=== PATIENT | female | born 1980 | race Caucasian/White ===

== ENCOUNTER 2021-05-14 14:59 | Day surgery (SDC) | payer OTHER ==
[2021-05-14 15:38] VITALS: BMI 34.8
== END 2021-05-14 19:15 | disposition home or self-care (01) ==
LOC: CSHLD/OP 14:59
PROVIDERS: ATTEND Student in an Organized Health Care Education/Training Program
DX: O99.891 Other specified diseases and conditions complicating pregnancy (principal); O47.1 False labor at or after 37 completed weeks of gestation; O32.1XX0 Maternal care for breech presentation, not applicable or unspecified; O09.523 Supervision of elderly multigravida, third trimester; O24.419 Gestational diabetes mellitus in pregnancy, unspecified control; O40.3XX0 Polyhydramnios, third trimester, not applicable or unspecified; R03.0 Elevated blood-pressure reading, without diagnosis of hypertension; Z3A.37 37 weeks gestation of pregnancy; Z79.82 Long term (current) use of aspirin; Z79.899 Other long term (current) drug therapy

== ENCOUNTER 2021-05-18 11:48 | Outpatient (CLI) | payer OTHER ==
[2021-05-18 21:48] LABS: SARS-CoV-2 PCR by NAA Not Detected (NotDetected)
== END 2021-05-18 11:49 | disposition home or self-care (01) ==
LOC: CSHLAB 11:48
PROVIDERS: ATTEND Family Medicine
DX: Z01.812 Encounter for preprocedural laboratory examination (principal); Z20.822 Contact with and (suspected) exposure to COVID-19
CPT/HCPCS: U0003; U0005

== ENCOUNTER 2021-05-25 16:24 | Inpatient (IN) | payer MEDICAID, OTHER ==
[2021-05-25] MEDS ORDERED: hydrALAZINE 20 MG/ML VIAL SLOW IVP PRN (17:01)
[2021-05-25] MEDS ORDERED: Promethazine HCl 25 MG/ML VIAL IM PRN (17:01)
[2021-05-25] MEDS ORDERED: Ondansetron PF 4 MG/2 ML Vial IVP PRN (17:01)
[2021-05-25] MEDS ORDERED: Lidocaine 1% (PF) 30 ML VIAL SC PRN (17:01)
[2021-05-25] MEDS ORDERED: NS w/ Oxytocin 30 units 500 ML IV SCH (17:15)
[2021-05-25 17:32] LABS: Hemoglobin 11.9 g/dL (12.0-15.5); Mean Corpuscular HGB CONC 33.1 g/dL (32.0-36.0); Mean Corpuscular Hemoglobin 29.6 pg (27.0-33.0); Mean Corpuscular Volume 89.6 fl (81.6-98.3); Mean Platelet Volume 10.4 fl (7.4-10.4); Platelet Count 249 10x3/uL (150-450); RBC Distribution Width 14.9 % (11.5-14.5); Red Blood Cell (RBC) Count 4.02 10x6/uL (3.90-5.03); White Blood Cell (WBC) Count 8.5 10x3/uL (3.5-10.5)
[2021-05-25 18:00] VITALS: BMI 34.8
[2021-05-25] MEDS ORDERED: Terbutaline Sulfate 1 MG/ML VIAL SC SCH (18:00)
[2021-05-25 18:05] LABS: Hep B Surf Ag Non-Reactive S/CO (NonReactive); Syphilis Antibody Nonreactive (Nonreactive); Syphilis Antibody Index 0.05 S/CO (<1.00 Non-Reactive)
[2021-05-25] MEDS ORDERED: Carboprost 250 MCG/ML AMP IM PRN (18:51)
[2021-05-25] MEDS ORDERED: Misoprostol 200 MCG TAB PR PRN (18:51)
[2021-05-25] MEDS ORDERED: Ibuprofen 800 MG TAB PO PRN (18:51)
[2021-05-25] MEDS: Misoprostol 100 MCG TAB VAG SCH (20:10)
[2021-05-26] MEDS: Misoprostol 100 MCG TAB VAG SCH ×3 (00:12→09:21)
[2021-05-26] MEDS ORDERED: NS w/ Oxytocin 30 units 0 ML ONE (13:35)
[2021-05-26] MEDS ORDERED: Lidocaine 1% (PF) 30 ML VIAL SC PRN (13:36)
[2021-05-26] MEDS ORDERED: NS w/ Oxytocin 30 units 500 ML IV SCH (13:45)
[2021-05-26] MEDS ORDERED: Fentanyl 2 mcg/Bup 0.1% Cadd 100 ML ONE (15:45)
[2021-05-26] MEDS ORDERED: Naloxone HCl 0.4 mg/ml Vial IVP PRN ×2 (16:16)
[2021-05-26] MEDS ORDERED: Promethazine HCl 25 MG/ML VIAL IM PRN (16:16)
[2021-05-26] MEDS ORDERED: Hydrocerin (Eucerin) Cream 120 gm Jar TOP PRN (16:16)
[2021-05-26] MEDS ORDERED: ePHEDrine Sulfate 50 MG/10 ML VIAL SLOW IVP PRN (16:16)
[2021-05-26] MEDS ORDERED: diphenhydrAMINE 50 MG/ML VIAL IVP PRN (16:16)
[2021-05-26] MEDS ORDERED: Ondansetron PF 4 MG/2 ML Vial IVP PRN (16:16)
[2021-05-26] MEDS ORDERED: Lactated Ringer's 500 ML IV PRN (16:16)
[2021-05-26] MEDS ORDERED: Acetaminophen 325 MG TAB PO PRN (16:16)
[2021-05-26] MEDS ORDERED: Fentanyl 2 mcg/Bupivacaine 0.1% Cassette 100 ML EPIDURAL SCH (16:30)
[2021-05-26] MEDS ORDERED: Communication Order-Pharmacy FS SCH (16:30)
[2021-05-26] MEDS ORDERED: Methylergonovine 0.2 MG/ML VIAL ONE (22:48)
[2021-05-26] MEDS ORDERED: Misoprostol 200 MCG TAB ONE (22:54)
[2021-05-27] MEDS: Misoprostol 100 MCG TAB VAG SCH (01:36)
[2021-05-27] MEDS ORDERED: Preparation H Ointment 28 GM TUBE PR PRN (01:37)
[2021-05-27] MEDS ORDERED: Ondansetron PF 4 MG/2 ML Vial IVP PRN (01:37)
[2021-05-27] MEDS ORDERED: Benzocaine-Menthol 82.5 ML CAN TOP PRN (01:37)
[2021-05-27] MEDS ORDERED: hydrALAZINE 20 MG/ML VIAL SLOW IVP PRN (01:37)
[2021-05-27] MEDS ORDERED: Milk Of Magnesia 30 ML UDCUP PO PRN (01:37)
[2021-05-27] MEDS ORDERED: Boostrix 0.5 ML (Tdap) VIAL IM ONE (01:37)
[2021-05-27] MEDS ORDERED: Misoprostol 200 MCG TAB VAG PRN (01:37)
[2021-05-27] MEDS ORDERED: Bisacodyl 10 MG SUPP PR PRN (01:37)
[2021-05-27] MEDS ORDERED: diphenhydrAMINE 25 MG CAP PO PRN (01:37)
[2021-05-27] MEDS ORDERED: Lanolin Ointment 7 GM TUBE TOP PRN (01:37)
[2021-05-27] MEDS ORDERED: NS w/ Oxytocin 30 units 500 ML IV SCH (02:00)
[2021-05-27] MEDS: Ibuprofen 800 MG TAB PO SCH ×3 (06:00→22:27)
[2021-05-27] MEDS: Ferrous Sulfate 325 MG TAB PO SCH ×2 (08:05→21:57)
[2021-05-27] MEDS: Prenatal Vitamin 1 TAB PO SCH (08:13)
[2021-05-27] MEDS: Docusate Calcium (SURFAK) 240 MG CAP PO SCH ×2 (08:13→22:26)
[2021-05-28] MEDS: Ibuprofen 800 MG TAB PO SCH (05:16)
[2021-05-28 07:46] VITALS: BP 114/58; TEMP 98.5
[2021-05-28] MEDS: Ferrous Sulfate 325 MG TAB PO SCH (08:00)
[2021-05-28] MEDS: Docusate Calcium (SURFAK) 240 MG CAP PO SCH (09:17)
[2021-05-28] MEDS: Prenatal Vitamin 1 TAB PO SCH (09:17)
== END 2021-05-28 13:35 | disposition home or self-care (01) | DRG 805 ==
LOC: CSHLD/OP 16:24 → CSHLD 17:00 → CSHPP 05-27 01:45
PROVIDERS: ADMIT Emergency Medicine; ATTEND Emergency Medicine
PROC: 10S0XZZ Reposition Products of Conception, External Approach (ICD-10-PCS; 2021-05-25)
PROC: 10E0XZZ Delivery of Products of Conception, External Approach (ICD-10-PCS; principal; 2021-05-26)
PROC: 10D17Z9 Manual Extraction of Products of Conception, Retained, Via Natural or Artificial Opening (ICD-10-PCS; 2021-05-26)
PROC: 10907ZC Drainage of Amniotic Fluid, Therapeutic from Products of Conception, Via Natural or Artificial Opening (ICD-10-PCS; 2021-05-26)
PROC: 3E0P7VZ Introduction of Hormone into Female Reproductive, Via Natural or Artificial Opening (ICD-10-PCS; 2021-05-26)
DX: O24.420 Gestational diabetes mellitus in childbirth, diet controlled (principal); O45.93 Premature separation of placenta, unspecified, third trimester; Z37.0 Single live birth; Z3A.39 39 weeks gestation of pregnancy; O99.214 Obesity complicating childbirth; O32.0XX0 Maternal care for unstable lie, not applicable or unspecified; O32.1XX0 Maternal care for breech presentation, not applicable or unspecified; O13.4 Gestational [pregnancy-induced] hypertension without significant proteinuria, complicating childbirth; O40.3XX0 Polyhydramnios, third trimester, not applicable or unspecified
CPT/HCPCS: 51702; 59412; 85027; 86780; 86850; 86900; 86901; 87340; 88307; J2210; J2590; J3105